=== PATIENT | female | born 1935 | race Caucasian/White ===

== ENCOUNTER → 2016-08-20 17:47 | Outpatient (CLI) | payer MEDICARE, BC ==
[2012-09-01 13:28] VITALS: BMI 31.3
[~2016-08-20 17:47] MED LIST: ELIQUIS2.5 MG PO; FENOFIBRATE134 MG PO; FOLIC ACID1 MG PO; LASIX40 MG PO; LISINOPRIL5 MG PO; MIRALAX17 GM PO; NEURONTIN 300300 MG PO; NORVASC5 MG PO; PERCOCET 10/3251 TA1 PO
[2016-09-09 09:47] VITALS: BMI 28.2
== END | disposition home or self-care (01) ==
LOC: D.LABREF 17:47
DX: Z96.651 Presence of right artificial knee joint (principal); Z11.8 Encounter for screening for other infectious and parasitic diseases

== ENCOUNTER 2016-09-05 09:30 | Inpatient (IN) | payer MEDICARE, BC ==
[~2016-09-05] VITALS: Ht 170.2 cm; Wt 81.8 kg
[2016-09-05 09:04] LABS: BASOPHILS 0.4 % (0.0-2.0); EOSINOPHILS 2.4 % (0-7); HEMATOCRIT 45.5 % (36.0-48.0); HEMOGLOBIN 15.1 g/dL (12-16); IMMATURE GRANULOCYTES 0.3 % (0-5); LYMPHOCYTES 28.9 % (15-50); MCH 28.5 pg (26.0-34.0); MCHC 33.2 g/dL (31.0-37.0); MEAN PLATELET VOLUME 10.1 fL (7.4-10.4); MONOCYTES 10.5 % (2-11); NEUTROPHILS 57.5 % (40-80); RBC 5.29 10x6/uL (4.00-5.40); RDW 14.2 % (11.5-14.5); WBC 8.9 10x3/uL (4.8-10.8)
[2016-09-05 09:05] LABS: PLATELET COUNT 269 10x3/uL (130-400)
[2016-09-05 09:19] LABS: APPEARANCE HAZY (CLEAR); BACTERIA MODERATE /hpf (NONE SEEN); BILIRUBIN NEGATIVE (NEGATIVE); COLOR YELLOW (YELLOW); GLUCOSE NEGATIVE (NEGATIVE); KETONE NEGATIVE (NEGATIVE); LEUKOCYTE ESTERASE 2+ (NEGATIVE); NITRITE NEGATIVE (NEGATIVE); PROTEIN NEGATIVE (NEGATIVE); RED CELLS - URINE 0-5 /hpf (0-5); SPECIFIC GRAVITY 1.015 (1.005-1.020); UROBILINOGEN NORMAL (NORMAL); WHITE CELLS - URINE >50 /hpf (0-5)
[2016-09-05 09:21] LABS: ANION GAP 14.6 mmol/L (8-16); CALCIUM 10.3 mg/dL (8.5-10.1); CARBON DIOXIDE 28.5 mmol/L (21.0-32.0); CREATININE - SERUM 1.2 mg/dL (0.6-1.3); POTASSIUM - SERUM 4.1 mmol/L (3.5-5.1)
[2016-09-05 09:22] LABS: APTT 24.8 SECONDS (22.8-39.4); INR 1.04 (0.85-1.17); PROTIME 13.4 SECONDS (11.6-15.0)
[2016-09-05] MEDS ORDERED: FOLIC ACID1 MG PO (12:37)
[2016-09-05] MEDS ORDERED: NORVASC5 MG PO (12:37)
[2016-09-05] MEDS ORDERED: NEURONTIN 300300 MG PO (12:37)
[2016-09-05] MEDS ORDERED: LISINOPRIL5 MG PO (12:38)
[2016-09-05] MEDS ORDERED: FENOFIBRATE134 MG PO (12:38)
[2016-09-05] MEDS ORDERED: LASIX40 MG PO (12:38)
[2016-09-05] MEDS ORDERED: MIRALAX17 GM PO (12:39)
[2016-09-09] VITALS (8 sets, daily range): BP systolic 109–127; BP diastolic 48–67; Ht 170.2 cm; Wt 81.8 kg
--- NOTE | 2016-09-09 06:35 | NUR ---
0630 IV ATTEMPTED X'S 2 UNSUCCESSFULLY WITH 20 GAUGE CATH BY Tamela ESQUIVEL R.N. BLOOD DRAWN FOR K+WITH UNSUCCESSFUL IV START. OR, Bubba HUSAIN R.N. NOTIFIED IV UNSUCCESSFUL. Tamela ESQUIVEL R.N.
--- NOTE | 2016-09-09 08:12 | NUR ---
RIGHT FOOT AND LEG WASHED WITH HIBICLENS PRIOR TO CHLORPREP PER D.N.
--- NOTE | 2016-09-09 09:40 | NUR ---
RECIEVED PATIENT VIA BED. PATIENT IS VERY DROWSY. AROUSES EASILY, ORIENTED X'S 4. NO SIGNS OF DISTRESS NOTED. PATIENT DENIES PAIN. PATIENT'S OXYGEN SATURATION 90-91%. APPLIED 2L/MIN OF OXYGEN VIA NASAL CANNULA. ASSESSMENT COMPLETED. PALPATED BILATERAL PEDAL PULSES. CAPILLARY REFILL <3 SECONDS IN ALL EXTREMETIES.
--- NOTE | 2016-09-09 13:44 | NUR ---
PATIENT IS RESTING QUIETLY WITH EYES CLOSED.
--- NOTE | 2016-09-09 18:57 | OP ---
PATIENT NAME: RICARDO MIRANDA MEDICAL RECORD: [id number] :34 LOCATION:[id number] ADMISSION DATE:09/09/16 SURGEON: CHRISTI MCCLAIN MD DATE OF OPERATION: 09/09/2016 PREOPERATIVE DIAGNOSIS: Degenerative arthritis of the right knee. POSTOPERATIVE DIAGNOSIS: Degenerative arthritis of the right knee. PROCEDURE: Right total knee arthroplasty. SURGEON: Christi Mcclain MD. ANESTHESIA: General. INTRAOPERATIVE COMPLICATIONS: None. SUMMARY OF PATHOLOGIC FINDINGS: Extensive osteoarthritis of the right knee. IMPLANTS USED: MarginLeft total knee arthroplasty system Triathlon size 5 distal femur, non-polyethylene insert, 5 tibial baseplate, 31 patellar resurface. OPERATIVE SUMMARY IN DETAIL: After obtaining the appropriate preoperative orthopedic surgery consent as well as anesthetic consultation, evaluation and clearance, the patient was brought to the operating room and placed on the operating table in supine position. After general laryngeal mask was administered, tourniquet was placed about the proximal aspect of the right lower extremity. The right lower extremity was then prepped and draped in a routine sterile fashion. The leg was elevated and exsanguinated, tourniquet inflated to 350 mmHg. Routine midline incision was taken down for paramedian arthrotomy. The patella was everted, the distal femur was exposed. Distal femoral intramedullary guide hole was created followed by distal femoral cutting. Soft tissue excision was done in the usual fashion. Proximal tibia was exposed. Proximal tibia intramedullary guide hole was also utilized and followed by proximal tibial cutting. Appropriate measurements taken. Chamfer cuts were made of the distal femur. Trials were put into place, seated appropriately taken through range of motion and found to be stable in all planes. Final distal femoral and proximal tibial preparations were followed by excision of the articular surface of the patella for resurfacing. After final patellar resurfacing preparations were made, the knee was copiously irrigated in pulsatile lavage fashion. Distal femoral and proximal tibia and patella were dried. The final components were put into place. All excess cement was removed. After the cement was allowed to harden, the knee was taken through a range of motion again was found to be stable in all planes. Paramedian arthrotomy was closed with #2 Ethibond followed by #1 Vicryl, 2-0 Vicryl and skin jasmin. Sterile dressings were applied. Tourniquet was deflated and the patient was awakened and taken to the recovery room in stable condition. All final needle and sponge counts were correct. TRANSINT:[id number] Voice Confirmation ID: [id number] DOCUMENT ID: [id number] OPERATIVE REPORT [id number] RICARDO MIRANDA MD, CHRISTI BROWER at 1857 CC: [id number] DICTATION DATE: 09/09/16 0845 MANAGER DELIVERY: 09/09/16 1052 ADM IN [id number] [place] [address]
--- NOTE | 2016-09-09 20:32 | NUR ---
PATIENT RESTING IN BED. NO SIGNS OF DISTRESS NOTED. SCHEDULED MEDS GIVEN. SHIFT ASSESSMENT COMPLETED. DENIES ANY NEEDS AT THIS TIME. DAUGHT PRESENT. BED LOW. CALL LIGHT IN REACH BED ALARM ON.
[2016-09-10] VITALS: BP 133/62
--- NOTE | 2016-09-10 02:40 | NUR ---
RESTING WITH EYES CLOSED, RESP WITH EASE, NO DISTRESS NOTED, FALL PRECAUTIONS IN PLACE, CL IN REACH
[2016-09-10 04:00] VITALS: BP 126/50
[2016-09-10 05:35] LABS: HEMOGLOBIN 11.7 g/dL (12-16); MCH 27.9 pg (26.0-34.0); MCHC 32.5 g/dL (31.0-37.0); MCV 85.7 fL (80.0-100.0); MEAN PLATELET VOLUME 10.3 fL (7.4-10.4); RBC 4.2 10x6/uL (4.00-5.40); RDW 14.2 % (11.5-14.5); WBC 12.8 10x3/uL (4.8-10.8)
[2016-09-10 08:38] VITALS: BP 152/75
[2016-09-10 13:04] VITALS: BP 149/53
--- NOTE | 2016-09-10 14:23 | NUR ---
* Is the patient Alert and Oriented? Yes 0 * How many steps to enter\exit or inside your home? 5 0 * PCP Dr. Maldonado 0 * Pharmacy [facility] 0 * Preadmission Environment Home with Family 0 * ADLs Independent 0 * Equipment Cane Shower Chair Tub Bench Walker 0 * List name and contact numbers for known caregivers / representatives who currently or will assist patient after discharge: Asa Escobar [phone] 0 * Additional services required to return to the preadmission environment? Yes 0 * Can the patient safely return to the preadmission environment? Yes 0 * Has this patient been hospitalized within the prior 30 days at any hospital? No 09/10/2016 14:24 DCP: Discharge Planning Patient Name: RICARDO MIRANDA Admission Status: Elective Accout number: [id number] Admission Date: 09-09-2016 : 1934 Admission Diagnosis: Attending: REYNA Current LOS: 1 Anticipated DC Date: 09-12-2016 Planned Disposition: Snf Facility Primary Insurance: MEDICARE A & B Discharge Planning Comments: CM met with patient to assess dc plans/needs. Patient states she lives at home with her , who has mild dementia. She reports she was independent with ADL's prior to admission. She has a walker & cane at home. She plans to go to [facility] for skilled rehab for a week or two before going home. ALEXANDER signed. Referral faxed and called to facility. CM will follow. Data Capture Clerk: Luz Guy
[2016-09-10 17:07] VITALS: BP 127/50
--- NOTE | 2016-09-10 18:13 | NUR ---
PATIENT ON CPM. REQUESTED PAIN MEDICATION TO PREVENT PAIN FROM CPM.
[2016-09-10 20:00] VITALS: BP 160/58
--- NOTE | 2016-09-10 22:09 | NUR ---
PATIENT RESTING IN BED CONFUSED. DISORIENTED TO PLACE AND SITUATION. DIFFICULT TO REORIENT. SCHEDULED MEDS GIVEN. ASSESSMENT COMPLETED. BED LOW. CALL LIGHT IN REACH. BED ALARM ON
--- NOTE | 2016-09-10 22:15 | NUR ---
LYING IN BED RESTING WITH EYES CLOSED, NO DISTRESS NOTED, FALL PRECAUTIONS IN PLACE, CL IN REACH
[2016-09-11] VITALS: BP 155/62
[2016-09-11 04:00] VITALS: BP 160/73
[2016-09-11 05:48] LABS: HEMATOCRIT 35.7 % (36.0-48.0); HEMOGLOBIN 11.5 g/dL (12-16); MCH 27.8 pg (26.0-34.0); MCHC 32.2 g/dL (31.0-37.0); MCV 86.4 fL (80.0-100.0); MEAN PLATELET VOLUME 10.5 fL (7.4-10.4); RBC 4.13 10x6/uL (4.00-5.40); RDW 14.6 % (11.5-14.5); WBC 10.9 10x3/uL (4.8-10.8)
--- NOTE | 2016-09-11 07:25 | NUR ---
PATIENT RECEIVED ALERT IN LOW CLEMONS POSITION. RESPIRATIONS EVEN AND UNLABORED. CPM TO RIGHT LEG. TOLERATING WELL. DENIES NEEDS. SIDE RAILS UP X2. BED IN LOW POSITION. CALL LIGHT IN REACH. BED ALARM ON.
--- NOTE | 2016-09-11 08:35 | NUR ---
PATIENT ALERT IN BED. NO SIGNS OF DISTRESS NOTED. SCHEDULED MEDICATION ADMINISTERED WELL PRN PERCOCET. SIDE RAILS UP X2. BED IN LOW POSITION. CALL LIGHT IN REACH. BED ALARM ON.
[2016-09-11 08:40] VITALS: BP 144/66
--- NOTE | 2016-09-11 09:09 | NUR ---
SITTING UP IN CHAIR ALERT. NO SIGNS OF DISTRESS NOTED. MIRALAX ADMINISTERED PER ORDERS. INCENTIVE SPIROMETER IN REACH. ENCOURAGED USE. DENIES NEEDS. CALL LIGHT IN REACH. WILL CONTINUE TO MONITOR.
--- NOTE | 2016-09-11 12:25 | NUR ---
SITTING UP IN CHAIR ALERT EATING LUNCH. TOLERATING WELL. DENIES NEEDS. CALL LIGHT IN REACH.
[2016-09-11 12:43] VITALS: BP 127/55
--- NOTE | 2016-09-11 14:25 | NUR ---
ALERT IN BED WITH GUEST PRESENT. NO SIGNS OF DISTRESS NOTED. SCHEDULED MEDICATION ADMINISTERED. DENIES PAIN. SIDE RAILS UP X2. BED IN LOW POSITION. CALL LIGHT IN REACH. SCDS ON BILATERALLY. BED ALARM ON.
[2016-09-11 16:26] VITALS: BP 137/60
--- NOTE | 2016-09-11 17:55 | NUR ---
LEFT LEG IN CPM. ICE PACK IN PLACE. DENIES NEEDS. SIDE RAILS UP X2. BED IN LOW POSITION. CALL LIGHT IN REACH.
--- NOTE | 2016-09-11 18:00 | NUR ---
PATIENT ALERT IN BED. RESPOSITIONED FOR COMFORT. CPM TO RIGHT LEG. ICE PACK IN PLACED. SIDE RAILS UP X2. BED IN LOW POSITION. CALL LIGHT IN REACH.
[2016-09-11 19:00] VITALS: BP 155/68
--- NOTE | 2016-09-11 19:00 | NUR ---
PATIENT SUPINE IN BED ON CPM. RESTING WITH EYES CLOSED BUT AROUSES TO VOICE. ORIENTED X4. RR EVEN AND UNLABORED. 0 S/S OF DISTRESS. DENIES PAIN AT THIS TIME. IV TO LEFT HAND S/L WITH NO REDNESS OR SWELLING. DRESSING TO RIGHT KNEE CDI. SCD'S TO BLE. B/A ON. SRX3. BED LOW. CALL LIGHT WITHIN REACH.
--- NOTE | 2016-09-11 21:00 | NUR ---
PATIENT OFF CPM. ASSISTED TO BSC AND BACK TO BED. ASSESSMENT COMPLETE. NIGHTTIME MEDS GIVEN. PERCOCET GIVEN FOR PAIN OF A 3/10. TEMP OF 100.. INSTRUCTED PATIENT TO COUGH AND USE IS. WILL CONTINUE TO MONITOR.
--- NOTE | 2016-09-12 02:55 | NUR ---
PATIENT SLEEPING WITH NO DISTRESS NOTED. CALL LIGHT WITHIN REACH.
[2016-09-12 04:00] VITALS: BP 176/71
--- NOTE | 2016-09-12 07:20 | NUR ---
PATIENT RECEIVED IN MID CLEMONS POSITION ALERT AND RESTING QUIETLY. RESPIRATIONS EVEN AND UNLABORED. SIDE RAILS UP X2. BED IN LOW POSITION. CALL LIGHT IN REACH. RIGHT LEG IN CPM. TOLERATING WELL. DENIES PAIN.
--- NOTE | 2016-09-12 08:30 | NUR ---
PATIENT ALERT IN BED. NO SIGNS OF DISTRESS NOTED. SCHEDULED MEDICATION ADMINISTERED WELL PRN PERCOCET. DENIES NEEDS. SIDE RAILS UP X2. BED IN LOW POSITION. CALL LIGHT IN REACH.
[2016-09-12 08:32] VITALS: BP 186/93
--- NOTE | 2016-09-12 11:30 | NUR ---
ASSISTED UP TO BSC ASSIST X1. PATIENT ABLE TO VOID WITHOUT DIFFICULTY. ASSISTED BACK TO CHAIR. POSITIONED FOR COMFORT. DENIES NEEDS. CALL LIGHT IN REACH.
[2016-09-12 11:42] VITALS: BP 132/66
--- NOTE | 2016-09-12 14:06 | NUR ---
ALERT IN BED. NO SIGNS OF DISTRESS NOTED. DENIES NEEDS. CALL LIGHT IN REACH. BED IN LOW POSITION. SIDE RAILS UP X2.
--- NOTE | 2016-09-12 17:02 | NUR ---
PATIENT IN MID CLEMONS POSITION RESTING WITH EYES CLOSED. RESPIRATIONS EVEN AND UNLABORED. SIDE RAILS UP X2. BED IN LOW POSITION. CALL LIGHT IN REACH. BED ALARM ON.
--- NOTE | 2016-09-12 19:00 | NUR ---
PATIENT SLEEPING SUPINE IN BED ON CPM. AROUSES TO VOICE. ORIENTED X4. RR EVEN AND UNLABORED. 0 S/S OF DISTRESS. DENIES PAIN AT THIS TIME. IV TO LEFT HAND PATENT WITH NO REDNESS OR SWELLING. DRESSING TO RIGHT KNEE CDI. SCD'S ON. B/A ON. SRX2. BED LOW. CALL LIGHT WITHIN REACH.
[2016-09-12 19:35] LABS: APPEARANCE CLEAR (CLEAR); BILIRUBIN NEGATIVE (NEGATIVE); COLOR YELLOW (YELLOW); GLUCOSE NEGATIVE (NEGATIVE); KETONE NEGATIVE (NEGATIVE); NITRITE NEGATIVE (NEGATIVE); PROTEIN NEGATIVE (NEGATIVE); UROBILINOGEN NORMAL (NORMAL)
[2016-09-12 19:36] LABS: BACTERIA FEW /hpf (NONE SEEN); EPITHELIAL CELLS 0-5 /hpf (0-5); LEUKOCYTE ESTERASE 1+ (NEGATIVE)
--- NOTE | 2016-09-12 22:45 | NUR ---
ASSISTED PATIENT TO BSC AND BACK TO BED. ASSESSMENT COMPLETE. TEMP 101.6. NO TYLENOL ORDERED BUT PERCOCET GIVEN FOR PAIN OF A 3/10. INSTRUCTED PATIENT TO USE IS. TURNED AIR DOWN IN ROOM AND REMOVED PATIENT'S ROBE. WILL REASSESS. ALL OTHER NIGHTTIME MEDS GIVEN.
[2016-09-12 22:56] VITALS: BP 181/66
[2016-09-12 23:00] VITALS: BP 172/70
--- NOTE | 2016-09-13 03:00 | NUR ---
PATIENT SLEEPING WITH NO DISTRESS NOTED. TEMP DOWN TO 98.8.
[2016-09-13 06:30] LABS: HEMOGLOBIN 11.8 g/dL (12-16); MCH 27.8 pg (26.0-34.0); MCHC 32.8 g/dL (31.0-37.0); MCV 84.7 fL (80.0-100.0); MEAN PLATELET VOLUME 9.6 fL (7.4-10.4); RBC 4.25 10x6/uL (4.00-5.40); RDW 14.4 % (11.5-14.5); WBC 9.9 10x3/uL (4.8-10.8)
[2016-09-13 06:48] LABS: ANION GAP 11.7 mmol/L (8-16); CALCIUM 9.2 mg/dL (8.5-10.1); CARBON DIOXIDE 27.9 mmol/L (21.0-32.0); CREATININE - SERUM 1.2 mg/dL (0.6-1.3); POTASSIUM - SERUM 3.6 mmol/L (3.5-5.1)
[2016-09-13 07:38] VITALS: BP 142/67
--- NOTE | 2016-09-13 08:33 | NUR ---
PT ASSESSMENT COMPLETE AWAKE AND ALERT ORINETED X 3 LUNGS CLEAR BIALTERALLY NO ACUTE DISTRESS NTOED VOICES ALL NEEDS TO STAFF HAS CPM IN PLACE TO BE REMOVED AT 0845 NO TEMP NOTED THIS AM COMPLAINS OF NEED TO HAVE BOWEL MOVEMENT. BSA X 4 QUADS ABDOMEN FIRM AND SLIGHTLY TENDER WITH PALPATION. CALL LIGHT IN REACH SIDE RAILS UP X 2
--- NOTE | 2016-09-13 08:53 | NUR ---
TALKING ON PHONE,WITHOUT DISTRESS.CALL LIGHT IN REACH
[2016-09-13] MEDS ORDERED: PERCOCET 10/3251 TA1 PO (09:28)
[2016-09-13] MEDS ORDERED: ELIQUIS2.5 MG PO (09:28)
--- NOTE | 2016-09-13 10:38 | NUR ---
PT UP WITH PHYSICAL THERAPY TO BEDSIDE CHAIR. TOLERATED WELL HAS ORDER TO DISCHARGE TO [facility]. DRESSING CHANGED PER ORDER. DISCHARGE COMPLETE AT THIS TIME AWAITING DAUGHTER TO TRANSPORT WILL CALL REPORT TO [place].
--- NOTE | 2016-09-13 11:13 | NUR ---
REPORT CALLED TO [facility] SPOKE WITH YAQUELIN KELLER LPN.
--- NOTE | 2016-09-13 11:52 | NUR ---
PT DISCHARGED AT THIS [facility] WITH DAUGHTER AND SON VIA PRIVATE VEHICLE EXPRESSED UNDERSTANDING OF DISCHARGE INSTRUCTIONS.
== END 2016-09-13 11:54 | DRG 470 ==
LOC: D.SDCHOLD 09:30 → D.MS 09-09 06:47 → D.SDCHOLD 09-09 07:30 → D.MS 09-09 09:30 → D.SDCHOLD 09-09 09:30 → D.MS 09-13 11:54
PROVIDERS: ADMIT Orthopaedic Surgery
PROC: 0SRC0J9 Replacement of Right Knee Joint with Synthetic Substitute, Cemented, Open Approach (ICD-10-PCS; principal; 2016-09-09 07:30)
DX: M17.11 Unilateral primary osteoarthritis, right knee (principal); I10 Essential (primary) hypertension